=== PATIENT | female | born 1975 | race Caucasian/White ===

== ENCOUNTER 2023-03-12 11:09 | Outpatient (CLI) | payer OTHER, SELFPAY ==
--- NOTE | ~2023-03-12 | MR_ITS ---
EXAMINATION: MR lumbar spine wo con DATE: 03/12/2023 12:00 INDICATION: Other spondylosis with radiculopathy, lumbar region. TECHNIQUE: Magnetic resonance imaging (MRI) of the lumbar spine was performed without intravenous con trast. Sequences included sagittal T2-weighted FSE, sagittal T2-weighted FS FSE, sagittal T1-weighted FSE, and axial T2-weighted FSE. COMPARISON: None FINDINGS: There is 4 degrees levocurvature of lumbar spine. L5 is a transitional segment. Vertebral b mariana heights and intervertebral disc heights are normal. The distal spinal cord signal intensity is no rmal. The conus medullaris is at T12-L1. The following disc levels are specifically discussed: L1-L2: The disc does not extend beyond the endplate margin. There is mild left facet joint osteoarthr itis. There is no neural foraminal stenosis. There is no central canal stenosis. L2-L3: The disc does not extend beyond the endplate margin. There is mild bilateral facet joint osteo arthritis. There is no neural foraminal stenosis. There is no central canal stenosis. L3-L4: The disc does not extend beyond the endplate margin. There is mild bilateral facet joint osteo arthritis. There is no neural foraminal stenosis. There is no central canal stenosis. L4-L5: The disc does not extend beyond the endplate margin. There is moderate right and mild left fac et joint osteoarthritis. There is mild bilateral neural foraminal stenosis. There is no central canal stenosis. L5-S1: The disc does not extend beyond the endplate margin. There is no facet joint osteoarthritis. T here is no neural foraminal stenosis. There is no central canal stenosis. IMPRESSION: 1. Mild lumbar spondylosis. Reviewed, dictated and finalized at location A. IMPRESSION: 1. Mild lumbar spondylosis.
== END 2023-03-12 11:10 | disposition home or self-care (01) ==
PROVIDERS: PCP Emergency Medicine; Visit Provider Nurse Practitioner Adult Health
DX: M47.26 Other spondylosis with radiculopathy, lumbar region (principal)
CPT/HCPCS: 72148

== ENCOUNTER 2023-03-31 01:40 | Day surgery (SDC) | payer OTHER, SELFPAY ==
[2023-03-24 12:13] VITALS: BMI 39.8
--- NOTE | 2023-03-24 12:21 | PC.NURSE ---
Report to the Outpatient Waiting Room, entrance under the green pavilion located off [facility], at time 6:30 on date 03/31/23. Planned Procedure Time: 8:30. Time changes happen often and if your time is changed the preop area will call you the afternoon before. - You and your visitor will be asked to self-screen and do not enter if you have any COVID symptoms. - A mask is optional within the hospital at this time. Patients may have clear liquids (water, carbonated beverages, clear teas, apple juice) until 3 hours prior to surgery with a maximum of 20 ounces. - No food from midnight until time of surgery Take the following medications with a SIP of water the morning of surgery: INHALERS DO NOT STOP ANY OF YOUR OTHER PRESCRIPTION MEDICATIONS PRIOR TO SURGERY EXCEPT THE FOLLOWING Medications to discontinue per physician: VITAMINS Date to take last dose: 03/27/23 Please no make-up, nail norwegian, hairspray, perfume, deodorant, or body powder the day of surgery. No jewelry (including any body piercings) or valuables the day of surgery, leave them at home. Please take a shower or bath the night before, or the morning of, surgery with an antibacterial soap. Wear comfortable, loose fitting clothing. - Jewelry must be removed prior to entering the operating room. Rings and piercings that are not removed may be cut off. - The hospital will not accept responsibility for valuables. - Please leave all valuables, including medications, at home the day of surgery. If you are going home after surgery, a licensed backhaul driver must drive you home. - NO public transportation without another adult if you receive anesthesia. - We recommend that an adult stay with you for 24 hours following discharge. - We also recommend that you do not drive, make important decision, drink alcoholic beverages, or take any drugs that were not prescribed by your health care provider for at least 24 hours after your discharge time. Follow any additional instructions given to you from your surgeon. If you or anyone in your household have experienced Covid symptoms in the past week, please notify your surgeon or the nurse liaison at the phone number below for possible testing. Telephone instructions given to KERRY - VINEET ALMONTE and asked if any additional questions and then verbalized understanding. Patient advised to call surgeon office or pre surgery nurse liaison [phone] if any additional questions.
--- NOTE | 2023-03-30 08:00 | PM.IMHP ---
H&P: HPI History of Present Illness Date/Time: 03/30/23 08:00 Chief Complaint: nasal obstruction nasal congestion septal deviation turbinate hypertrophy chronic sinusitis Narrative: planned procedure Review of Systems Review of Systems: All systems reviewed & are unremarkable except as noted in HPI and below PMFSH Past Medical History Medical History Asthma GERD (gastroesophageal reflux disease) Surgical History Surgical History History of History of cholecystectomy History of hand surgery History of knee surgery History of shoulder surgery Family History Family History Father Cerebrovascular accident Social History Social History (Updated 01/11/23 @ 14:16 by Francy Shabazz CMA) Smoking packs per day: 1 Smoking cigarettes per day: 20.0 Years smoked: 36 Smoking pack-years: 36.00 Smoking status: Current every day smoker Tobacco type: cigarettes Alcohol intake: never Substance use: current Substance use type: marijuana Lack of Transportation: YES Lack of Food: Never True Current Housing: I Have Housing Concerned About Future Housing: YES Difficulty Paying Gas/Electric Bills: No Difficulty Paying for Meds: YES Currently Unemployed: No Education: High School Diploma/GED Difficulty w/ Childcare or Family Care: No Living arrangements: with family Spiritual care concerns: No Meds Home Medications and Allergies Home Medications Medication Instructions Recorded Confirmed Type vitamin B complex (B 1 tablet PO DAILY 03/21/22 03/24/23 History Complex-Vitamin B12 tablet) azelastine 137 mcg (0.1 %) nasal 1 spray intranasal Q12H #30 mL 01/11/23 03/24/23 Rx spray aerosol fluticasone propionate 50 1 - 2 spray intranasal BID #16 mL 01/11/23 03/24/23 Rx mcg/actuation nasal spray,suspension (Flonase Allergy Relief) albuterol sulfate 90 mcg/actuation 1 inh inhalation Q4H PRN 03/24/23 03/24/23 History aerosol inhaler Bronchospasm benztropine 2 mg tablet 2 mg PO BID 03/24/23 03/24/23 History fluticasone propionate 230 2 inh inhalation BID 03/24/23 03/24/23 History mcg-salmeterol 21 mcg/actuation HFA inhaler (Advair HFA) mirtazapine 15 mg tablet 15 mg PO HS 03/24/23 03/24/23 History montelukast 10 mg tablet 10 mg PO HS 03/24/23 03/24/23 History paliperidone palm (3-month) 819 819 mg IM [id number] 03/24/23 03/24/23 History mg/2.63 mL intramuscular syringe (Invega Trinza) quetiapine 200 mg tablet 200 mg PO HS 03/24/23 03/24/23 History tiotropium bromide 1.25 2 inh inhalation QNOON 03/24/23 03/24/23 History mcg/actuation mist for inhalation (Spiriva Respimat) Allergies Allergy/AdvReac Type Severity Reaction Status Date / Time No Known Allergies Allergy Verified 03/24/23 12:08 Exam Narrative: septal deviation turbinate hypertrophy Assessment and Plan Assessment and plan (1) Post-nasal drainage: Code(s): R09.82 - Postnasal drip Status: Acute Assessment and Plan: plan OR image guided endoscopic right-sided anterior ethmoidectomy frontal sinusotomy. Endoscopic assisted septoplasty. Inferior turbinate submucosal reduction bilaterally with outfracture. risks were discussed including bleeding infection damage to surrounding structures change in vision blindness change in brain function CSF leak brain brain damage. Septal perforation need for splint placement need for prolonged steroid antibiotic use need for time off work time off school. Damage to any structure above the clavicle by myself. Damage to any structure including the vocal cords during the induction and maintenance of surgery. (2) Nasal congestion: Code(s): R09.81 - Nasal congestion Status: Acute (3) Nasal obstruction:
[2023-03-31] VITALS (10 sets, daily range): BP systolic 127–174; BP diastolic 73–107; PULSE 82–96; RESP 13–18; TEMP 36.3–36.8; O2SAT 94–100
[2023-03-31] MEDS: ACETAMINOPHEN 500 MG TABLET 1000 MG PO (06:28)
[2023-03-31] MEDS: LACTATED RINGERS 1,000 ML 30 ML IV CONT ×2 (06:40→10:41)
--- NOTE | 2023-03-31 07:21 | WPDHPUPDATE1 ---
History and Physical Update Update Date/Time: 03/31/23 07:21 History and Physical has been reviewed, including an updated exam of the patient. There are NO changes in the patient's condition. Risks, benefits, and alternatives have been discussed and questions answered. Patient agrees to proceed with procedure.
--- NOTE | 2023-03-31 07:33 | SUR.PREOP ---
Found patient vaping. Asked to stop this now, to not do this in the hospital and especially before surgery. Patient agreed.
--- NOTE | 2023-03-31 07:55 | WPDANESEPPF ---
Anes - Initial Pre Proc Eval Procedure: Operation Date: 03/31/23 08:30 Proposed Procedures p Image Guided Bilateral Inferior Turbinectomy with Outfracture, Right Frontal Sinusotomy, Right Anterior Ethmoidectomy, - Hernan Lizarraga MD s Endoscopic Septoplasty - Hernan Lizarraga MD Date/Time: 03/31/23 07:55 Surgeon: Hernan Lizarraga MD Pre Op Diagnosis: Nasal Septal Dai, Turbinate Hypertrophy Patient Data Age: 47 Gender: F Height: 1.52 m Weight: 95.5 kg Last Vital Signs Temp 36.8 C 03/31/23 06:47 Pulse 93 03/31/23 06:47 Resp 16 03/31/23 06:47 BP 128/79 03/31/23 06:47 Pulse Ox 97 03/31/23 06:47 O2 Del Method Room Air 03/31/23 06:47 Allergies Allergy/AdvReac Type Severity Reaction Status Date / Time No Known Allergies Allergy Verified 03/31/23 06:27 Home Medications Medication Instructions Recorded Confirmed Type vitamin B complex (B 1 tablet PO DAILY 03/21/22 03/24/23 History Complex-Vitamin B12 tablet) azelastine 137 mcg (0.1 %) nasal 1 spray intranasal Q12H #30 mL 01/11/23 03/24/23 Rx spray aerosol fluticasone propionate 50 1 - 2 spray intranasal BID #16 mL 01/11/23 03/24/23 Rx mcg/actuation nasal spray,suspension (Flonase Allergy Relief) albuterol sulfate 90 mcg/actuation 1 inh inhalation Q4H PRN 03/24/23 03/24/23 History aerosol inhaler Bronchospasm benztropine 2 mg tablet 2 mg PO BID 03/24/23 03/24/23 History fluticasone propionate 230 2 inh inhalation BID 03/24/23 03/24/23 History mcg-salmeterol 21 mcg/actuation HFA inhaler (Advair HFA) mirtazapine 15 mg tablet 15 mg PO HS 03/24/23 03/24/23 History montelukast 10 mg tablet 10 mg PO HS 03/24/23 03/24/23 History paliperidone palm (3-month) 819 819 mg IM [id number] 03/24/23 03/24/23 History mg/2.63 mL intramuscular syringe (Invega Trinza) quetiapine 200 mg tablet 200 mg PO HS 03/24/23 03/24/23 History tiotropium bromide 1.25 2 inh inhalation QNOON 03/24/23 03/24/23 History mcg/actuation mist for inhalation (Spiriva Respimat) Patient hx anesthesia problems: none Family hx anesthesia problems: none Results Review: All pre-operative results and documents have been reviewed as part of the pre-operative evaluation. [facility] Past Medical History Medical History (Updated 03/31/23 @ 07:55 by Alexis Castle MD) Asthma GERD (gastroesophageal reflux disease) Morbid obesity Surgical History Surgical History History of History of cholecystectomy History of hand surgery History of knee surgery History of shoulder surgery Family History Family History Father Cerebrovascular accident Social History Social History Smoking packs per day: 1 Smoking cigarettes per day: 20.0 Years smoked: 36 Smoking pack-years: 36.00 Smoking status: Current every day smoker Tobacco type: cigarettes Alcohol intake: never Substance use: current Substance use type: marijuana Lack of Transportation: YES Lack of Food: Never True Current Housing: I Have Housing Concerned About Future Housing: YES Difficulty Paying Gas/Electric Bills: No Difficulty Paying for Meds: YES Currently Unemployed: No Education: High School Diploma/GED Difficulty w/ Childcare or Family Care: No Living arrangements: with family Spiritual care concerns: No Anes - Eval Final PreProcedure Day of Procedure 03/31/23 07:55 Patient weight: morbidly obese Heart: regular rate and rhythm Lungs: clear to auscultation Airway: Mallampati scale class II Neurological: alert and oriented Last oral intake: >/= 8 hours ASA classification: III Emergent: no Anesthetic plan: proceed Anesthesia type and monitoring: general ETT and standard monitoring Results Review: All pre-operative results and documents have been reviewed as part of the
[2023-03-31] MEDS: ceFAZolin 2 GM/D5W 50 ML 2 GM/50 ML BAG IVPB (08:32)
[2023-03-31] MEDS: OXYMETAZOLINE HCL 0.05% NAS 15 ML BTL (*BKC) 1 SPRAY NASAL (10:07)
[2023-03-31] MEDS: LIDO 1%/EPINEPHRINE 1:100,000 50 ML VIAL 20 ML INFILTRATE (10:28)
[2023-03-31] MEDS: MUPIROCIN 2% OINT 22 GM TUBE 1 APPLIC EACH NARE (10:28)
--- NOTE | 2023-03-31 11:10 | W.PM.PROC2 ---
Procedure Note - Detailed Date of Procedure 03/31/23 Pre-op Diagnosis Nasal Septal Dai, Turbinate HypertrophyChronic sinusitis nasal obstruction nasal congestion Post-op Diagnosis Same Procedure Performed endoscopic assisted septoplasty inferior turbinate reduction with outfracture right-sided image guided endoscopic anterior ethmoidectomy frontal sinusitis me with drill out draft 2b right-sided middle turbinectomy Surgeon Hernan Lizarraga MD Anesthesia General Indications see above Findings really really osteotomy right frontal outflow had to drill out the 2b fashion after removed the turbinate as it was scarred over. Turbinates severely hypertrophied on the right well reduced septum severely deviated left well reduced straight. Overall really good procedure. Description of Procedure Patient identified consent verified. Patient brought operating room. Time-out performed. General anesthesia induced endotracheal tube secured airway. Patient prepped draped position image guidance confirmed 2nd time-out performed. Afrin-soaked pledgets placed for 5 minutes then removed. 0 degree degree endoscope utilized. Total 16 cc 1% lidocaine 1 100,000 parts epinephrine injected the bilateral nasal septum heads of the inferior turbinates and right middle turbinate axilla. Left-sided [place] incision made with 15 blade. Seven Latvian suction utilized to elevate left-sided nasal septal flap 2 tears. Osteotome utilized to cross over. Right-sided nasal septal flap elevated no concomitant tears no tears at all. Deviated septum removed Nikhil Yepez forceps osteotome and Danyel forceps. [place] incision closed 3 interrupted 5 0 fast gut sutures. Turbinates reduced in the submucosal plane using microdebrider with turbinate blade. They were then outfractured using Oaks elevator. Right-sided sinus surgery performed under image guidance the entire time. Kerrison utilized to open up the agger Nasi anterior ethmoid cells. At this point it was noted that the maxillary here ridge off the maxilla as well as the frontal beak were 2 osteotomies. Was unable to cannulate either frontal outflow tract as her completely covered by bone. A drill was utilized to lower the maxillary ridge drill out the frontal beak and open up the frontal sinus appropriately both outflow tracts were then connected. The tissue was diseased. Nova pack was placed in the frontal outflow and soaked with 1 cc of 10 per cc Decadron. Bilateral nasal passages were then copiously irrigated. Quitnero splints were placed and sutured anteriorly using a 5 0 fast sorry 3 0 mattress nylon suture. Patient tolerated the procedure very very well. Total blood loss only about 25 cc. Estimated Blood Loss 25 Drains No Packing Yes ( Nova pack) Pathology None sent Complications No immediate complications Condition Stable Disposition PACU [facility] Billing Surgery - Charge Forward: Surgery Billing
[2023-03-31] MEDS: fentaNYL CITRATE INJ (*CRX) 100 MCG/2 ML VIAL 25 MCG IV PUSH ×2 (11:25→11:36)
[2023-03-31] MEDS: oxyCODONE HCL (*CRX) 5 MG TAB IR PO (12:07)
--- NOTE | 2023-03-31 13:23 | SUR.PHASEII ---
1315 PATIENT MEETS ANESTHESIA DISCHARGE CRITERIA. DRESSED & WAITING FOR RIDE HOME. ACCOMPANIED BY ADULT DAUGHTER.
== END 2023-03-31 13:24 | disposition home or self-care (01) ==
PROVIDERS: PCP Emergency Medicine; Visit Provider Otolaryngology
PROC: (CPT 30999; principal; 2023-03-31 08:30)
PROC: (CPT 30520; 2023-03-31 08:30)
DX: J32.9 Chronic sinusitis, unspecified (principal); J34.2 Deviated nasal septum; J34.3 Hypertrophy of nasal turbinates; J34.89 Other specified disorders of nose and nasal sinuses; R09.81 Nasal congestion; R09.82 Postnasal drip; J45.909 Unspecified asthma, uncomplicated; F17.210 Nicotine dependence, cigarettes, uncomplicated; F12.90 Cannabis use, unspecified, uncomplicated; Z79.51 Long term (current) use of inhaled steroids
CPT/HCPCS: 30999; 31254; 31276; 61782; 30520; 30140; A9270; J0330; J0690; J1100; J2250; J2405; J2704; J3010; J7120

== ENCOUNTER 2023-04-12 08:28 | Outpatient (CLI) | payer OTHER, SELFPAY ==
--- NOTE | 2023-04-12 11:00 | NEURO_ITS ---
Impression: Patient reports a history of lower extremity weakness and numbness. # Normal nerve conduction study. # Normal needle/EMG exam. # Clinical correlation recommended. Nerve Conduction Studies Anti Sensory Summary Table Stim Site NR Peak (ms) P-T Amp (?V) Site1 Site2 Delta-P (ms) Dist (cm) Aroldo (m/s) Left Sup Fibular Anti Sensory (Ant Lat Mall) 14 cm 3.1 6.1 14 cm Ant Lat Mall 3.5 16.0 46 Right Sup Fibular Anti Sensory (Ant Lat Mall) 14 cm 2.9 14.7 14 cm Ant Lat Mall 2.9 16.0 55 Left Sural Anti Sensory (Lat Mall) Calf 3.4 16.1 Calf Lat Mall 3.4 16.0 47 Right Sural Anti Sensory (Lat Mall) Calf 3.3 20.9 Calf Lat Mall 3.3 16.0 48 Motor Summary Table Stim Site NR Onset (ms) O-P Amp (mV) Site1 Site2 Delta-0 (ms) Dist (cm) Aroldo (m/s) Left Peroneal Motor (Vastus Med) Ankle 4.2 6.9 Popit Ankle 8.4 39.0 46 Popit 12.6 5.6 B Fib Ankle 6.0 28.0 47 B Fib 10.2 5.6 Right Peroneal Motor (Vastus Med) Ankle 4.1 6.2 Popit Ankle 7.9 39.0 49 Popit 12.0 4.6 B Fib Ankle 5.9 29.0 49 B Fib 10.0 4.8 Left Tibial Motor (Abd Jesus Brev) Ankle 4.3 11.3 Knee Ankle 8.1 40.0 49 Knee 12.4 9.4 Right Tibial Motor (Abd Jesus Brev) Ankle 4.6 11.5 Knee Ankle 7.7 40.0 52 Knee 12.3 12.1 F Wave Studies NR F-Lat (ms) L-R F-Lat (ms) Left Peroneal (Mrkrs) (EDB) 51.80 0.23 Right Peroneal (Mrkrs) (EDB) 51.57 0.23 Left Tibial (Mrkrs) (Abd Hallucis) 51.68 1.54 Right Tibial (Mrkrs) (Abd Hallucis) 50.14 1.54 EMG Side Muscle Nerve Root Ins Act Fibs Amp Dur Recrt Comment Right AntTibialis Dp Br Fibular L4-5 Nml Nml Nml Nml Nml Right Gastroc Tibial S1-2 Nml Nml Nml Nml Nml Right Fibularis Long Sup Br Fibular L5-S1 Nml Nml Nml Nml Nml Right Flex Dig Long Tibial L5-S2 Nml Nml Nml Nml Nml Right Ext Dig Brev Dp Br Fibular L5, S1 Nml Nml Nml Nml Nml Left AntTibialis Dp Br Fibular L4-5 Nml Nml Nml Nml Nml Left Gastroc Tibial S1-2 Nml Nml Nml Nml Nml Left Fibularis Long Sup Br Fibular L5-S1 Nml Nml Nml Nml Nml Left Flex Dig Long Tibial L5-S2 Nml Nml Nml Nml Nml Left Ext Dig Brev Dp Br Fibular L5, S1 Nml Nml Nml Nml Nml MTDD
== END 2023-04-12 08:29 | disposition home or self-care (01) ==
LOC: ANHNEURO 08:28
PROVIDERS: PCP Emergency Medicine; Visit Provider Nurse Practitioner Adult Health
DX: M47.26 Other spondylosis with radiculopathy, lumbar region (principal)
CPT/HCPCS: 95886; 95910

== ENCOUNTER 2023-05-15 10:03 | Outpatient (CLI) | payer OTHER, SELFPAY ==
--- NOTE | ~2023-05-15 | MR_ITS ---
MRI of the thoracic spine Clinical History: Paresthesias Technique: Axial T2-weighted and gradient images, and sagittal T1-weighted, T2-weighted, and STIR teressa ges were acquired. Findings: There is no fracture or subluxation of the thoracic spine. Vertebral bodies maintain normal height and alignment. No suspicious bone marrow signal reality seen. No significant disc bulge or herniation seen at any thoracic level. No spinal canal stenosis, cord co mpression, or neural foraminal narrowing identified. No epidural mass or collection seen. Paravertebral soft tissues are unremarkable. Impression: No significant abnormality seen. Reviewed, dictated and finalized at [facility]. Impression: No significant abnormality seen.
--- NOTE | ~2023-05-15 | MR_ITS ---
MRI of the cervical spine Clinical History: Paresthesias Technique: Axial T2-weighted and gradient images, and sagittal T1-weighted, T2-weighted, and STIR teressa ges were acquired. Findings: There is straightening of the normal cervical lordosis. No fracture or subluxation. No susp icious bone marrow signal abnormality seen. At C2-C3, there is no disc bulge or herniation. No spinal canal stenosis, cord compression, or neural foraminal narrowing. At C3-C4, there is no significant disc bulge or herniation. No spinal canal stenosis, cord compressio n, or neural foraminal narrowing. At C4-C5, there is osteophyte formation at the left foraminal region. No spinal canal stenosis, cord compression, or right neural foraminal narrowing. Probable left neural foraminal narrowing. At C5-C6, there is minimal disc osteophyte convex. No spinal canal stenosis, cord compression, or meena ral foraminal narrowing. At C6-C7, there is minimal disc osteophyte convex. No spinal canal stenosis, cord compression, or meena ral foraminal narrowing. No abnormal signal seen in the spinal cord. Paravertebral soft tissues are unremarkable. Impression: Minimal degenerative spondylosis, as above. Reviewed, dictated and finalized at location . Impression: Minimal degenerative spondylosis, as above.
== END 2023-05-15 10:04 | disposition home or self-care (01) ==
PROVIDERS: PCP Emergency Medicine; Visit Provider Orthopaedic Surgery
DX: M62.81 Muscle weakness (generalized) (principal); R20.2 Paresthesia of skin; M47.892 Other spondylosis, cervical region
CPT/HCPCS: 72141; 72146

== ENCOUNTER 2023-08-03 09:43 | Outpatient (CLI) | payer OTHER, SELFPAY ==
--- NOTE | ~2023-08-03 | CT_ITS ---
EXAMINATION: CT sinus wo con DATE: 08/03/2023 10:10 INDICATION: Acute sinusitis TECHNIQUE: Computed tomography (CT) of the paranasal sinuses was performed without intravenous contra st. The dose-length product was 298.61 mGy-cm. COMPARISON: None FINDINGS: There is mucosal thickening of the right maxillary sinus with mucosal thickening of the rig ht ostiomeatal unit, partially occluded. Mastoids are pneumatized. No air-fluid levels. No mucoperios teal reaction. Leftward nasal septal deviation. There is mild mucosal thickening anterior ethmoid air cells on the right. IMPRESSION: 1. Mild right maxillary and ethmoid sinus disease. Reviewed, dictated and finalized at location L.
== END 2023-08-03 09:44 | disposition home or self-care (01) ==
PROVIDERS: PCP Emergency Medicine; Visit Provider Otolaryngology
DX: J01.90 Acute sinusitis, unspecified (principal)
CPT/HCPCS: 70486